=== PATIENT | female | born 1950 | race African-American/Black ===

== ENCOUNTER 2021-09-04 17:33 | Inpatient (IN) | payer MEDICARE, OTHER ==
[~2021-09-04] VITALS: Ht 160 cm; Wt 63.5 kg
--- NOTE | 2021-09-04 17:35 | NUR ---
CALLED PINKY FOR PSYCH EVAL.
[2021-09-04] MEDS ORDERED: OLAN2.5T3 PO ×2 (17:58)
[2021-09-04] MEDS ORDERED: IMIP25TA6 PO (17:58)
[2021-09-04] MEDS ORDERED: LOVA40TA2 PO (17:58)
[2021-09-04] MEDS ORDERED: CEPH500C2 PO (17:58)
[2021-09-04] MEDS ORDERED: LEVO50TA8 PO (17:58)
[2021-09-04] MEDS ORDERED: METO-356 PO (17:58)
[2021-09-04] MEDS ORDERED: GABA100C PO (17:58)
--- NOTE | 2021-09-04 18:06 | NUR ---
SANDWICH AND JUICE PROVIDED FOR PT.
--- NOTE | 2021-09-04 19:18 | NUR ---
PT NOTED TO BE CONTINUOUSLY WALKING AROUND ER DESPITE RE-ORIENTATION AND REDIRECTION. PLACED 1:1 SITTER, SECURITY BEDSIDE.
--- NOTE | 2021-09-04 19:26 | NUR ---
PINKY FROM CRISIS AT BEDSIDE TO EVAL PT.
[2021-09-04] MEDS ORDERED: OLANZAPINE 10 MG VIAL IM ONE ×2 (19:30→19:39)
--- NOTE | 2021-09-04 20:21 | NUR ---
GAVE REPORT TO SCOOTER IN U.
--- NOTE | 2021-09-04 20:50 | NUR ---
Pt. admitted to U ROOM 139B , under care of AND DR. ZEPEDA DX: PSYCHOSIS 5150 HOLD GD Belongs List completed
[2021-09-04] MEDS ORDERED: ACETAMINOPHEN 325 MG TABLET PO PRN (21:00)
[2021-09-04] MEDS ORDERED: BLOOD SUGAR DIAGNOSTIC 1 EACH STRIP VI ONE (21:00)
[2021-09-04] MEDS ORDERED: MAGNESIUM HYDROXIDE 30 ML LIQUID UDC PO PRN (21:00)
[2021-09-04] MEDS ORDERED: MAG HYDROX/AL HYDROX/SIMETH 30 ML LIQUID UDC PO PRN (21:00)
[2021-09-04] MEDS: CEphaleXIN 500 MG CAPSULE PO SCH (21:51)
[2021-09-04] MEDS: TEMAZEPAM 7.5 MG CAPSULE PO PRN (21:51)
--- NOTE | 2021-09-05 01:09 | NUR ---
ADMISSION NOTE: 71 YRS OLD FEMALE WHO LIVES ALONE WAS TRANSFERRED FROM [facility] TO [facility].PT GOT ZYPREXA 10 MG IM FOR BEHAVIOR ISSUES DUE TO UNCOOPERATIVE WITH DIRECTION .PT ARRIVED TO MHU VIA [facility]ERNEY AFTER MEDICAL CLEARED FROM ER AND CRISIS TEAM PUT HER ON 72 HR HOLD FOR GD DUE TO INCREASED CONFUSION,INSOMNIA AND ANXIETY.A/O X1,CONFUSED,ANXIOUS,POOR CONCENTRATION,EASILY IRRITABLE AND PARANOID.PT.HAS HX.OF HTN,HL,HYPOTHYROIDISM,FIBROMYALGIA,UTI AND PSYCHOTIC DISORDER.FIXATED ON HER MEDICATIONS THAT SHE BROUGHT WITH HER.HX.OF FAILED SA IN THE PAST BUT SHE DENIES PAIN/SI/HI/A&V H.@ THIS TIME.IN NO ACUTE DISTRESS NOTED AND NO AGGRESSIVE BEHAVIOR @ THIS MOMENT.WILL CONTINUE TO MONITOR.
[2021-09-05] MEDS: LEVOTHYROXINE SODIUM 50 MCG TABLET PO SCH (06:47)
[2021-09-05] MEDS: CEphaleXIN 500 MG CAPSULE PO SCH ×3 (06:47→20:32)
[2021-09-05 07:30] VITALS: BP 122/80
[2021-09-05 07:55] LABS: HEMATOCRIT 43.4 % (31.2-41.9); MEAN CORPUSCULAR VOLUME 89.5 fL (75.5-95.3); PLATELET COUNT (AUTO) 204 K/uL (179-408)
[2021-09-05 08:16] LABS: THYROID STIMULATING HORMONE 1.192 mIU/mL (0.358-3.740)
--- NOTE | 2021-09-05 08:24 | NUR ---
GPS: Nursing Notes: Per Pharmacy Vaccinations: Vaccinations: Flu and pneumonia vaccinations not provided by pharmacy at this time due to patient on antibiotic for UTI (Keflex), waiting for the antibiotic treatment to be completed or to be given before discharge, to be endorse to incoming shift, continue with treatment plan.
[2021-09-05] MEDS: METOPROLOL SUCCINATE XL 25 MG TAB.SR.24H PO SCH (08:29)
[2021-09-05] MEDS: LORAZEPAM 1 MG TABLET PO PRN ×4 (08:29→20:41)
[2021-09-05] MEDS: GABAPENTIN 100 MG CAPSULE PO SCH ×3 (08:29→16:35)
[2021-09-05 09:17] LABS: BILIRUBIN,TOTAL 0.7 mg/dL (0.2-1.0); CREATININE 1.2 mg/dL (0.6-1.3); MAGNESIUM 2.2 mg/dL (1.8-2.4); PHOSPHOROUS 3.5 mg/dL (2.5-4.9); POTASSIUM 4.2 mmol/L (3.5-5.1); TOTAL PROTEIN, SERUM 6.8 g/dL (6.4-8.2)
--- NOTE | 2021-09-05 11:20 | NUR ---
Firearms Report: Administration Manager completed and submitted a DOJ firearms report for 5150 grave disability certifications. A copy of report has been placed in patient chart.
--- NOTE | 2021-09-05 14:19 | NUR ---
BINH Initial Discharge Plan: Patient currently resides at home [address] [place] [address] ([phone]) by herself. Pt has daughter, Ricarda ([phone]) and son Nasir ([phone]) who she does not want involved in her treatment plan. Patient may require a SNF placement upon discharge. Pt is agreeable with SNF placement. BINH will continue to work with patient, family, and MD to ensure a safe and proper discharge plan.
--- NOTE | 2021-09-05 14:21 | NUR ---
SW Daughter Contact: Patient's daughter, Ricarda ([phone]) contacted this child care worker and provided collateral information. Ricarda stated that the patient has been living on her own independently. Ricarda stated that the patient recently contacted all her family members requesting for them to move in with her because she can not longer take care of herself. Ricarda stated that she, the patient's son and patient's brother are all concerned. Ricarda stated that they have not been as involved with each other until recently.
[2021-09-05 15:00] VITALS: BP 123/57
[2021-09-05 20:10] VITALS: BP 108/51
[2021-09-05] MEDS: ATORVASTATIN 40 MG TABLET PO SCH (20:32)
[2021-09-05] MEDS ORDERED: MIRTAZAPINE 15 MG TABLET PO SCH (21:30)
[2021-09-05] MEDS: RIVASTIGMINE TARTRATE 1.5 MG CAPSULE PO SCH (21:50)
[2021-09-05] MEDS: risperiDONE 0.5 MG TABLET PO SCH (21:50)
--- NOTE | 2021-09-06 05:01 | NUR ---
Received the patient at the start of the shift asking for the phone. This senior writer assisted the patient multiple times but the patient was unclear of the number. The patient is needy, impulsive and visibly angered by the other patients. Making faces behind their backs, as well as, flipping them off. The patient appears to be confused and easily irritated. This senior writer attempted to engage the patient in meaningful conversation but due to tangential and delusion responses it was difficult.The patient denies SI, but clearly is unable to plan for self care. The daughter called but the patient refused to talk to her and was adamant that no information be provided. This was also endorsed to the senior writer from the dayshift. So far, the patient has been medication compliant and able to let her needs be known. Safety stratiges are in place.
[2021-09-06] MEDS: CEphaleXIN 500 MG CAPSULE PO SCH ×3 (05:59→21:24)
[2021-09-06] MEDS: LEVOTHYROXINE SODIUM 50 MCG TABLET PO SCH (06:00)
[2021-09-06 07:30] VITALS: BP 131/60
[2021-09-06] MEDS: GABAPENTIN 100 MG CAPSULE PO SCH ×3 (08:01→17:09)
[2021-09-06] MEDS: RIVASTIGMINE TARTRATE 1.5 MG CAPSULE PO SCH ×2 (08:01→20:12)
[2021-09-06] MEDS: risperiDONE 0.5 MG TABLET PO SCH ×2 (08:01→20:21)
[2021-09-06] MEDS: METOPROLOL SUCCINATE XL 25 MG TAB.SR.24H PO SCH (08:07)
--- NOTE | 2021-09-06 09:27 | NUR ---
GPS: RECEIVED PT ALERT AND VERBALLY RESPONSIVE, WITH CONFUSION. PT LIKES TO SEEK ATTENTION. MED COMPLIANT AND COOPERATIVE.
--- NOTE | 2021-09-06 12:39 | NUR ---
GPS: PT WITH INCREASED CONFUSION. PT FORGETFUL, ASKING FOR MORNING MEDS AND ACTING SUSPICIOUS TO STAFF. PT ON KEFLEX FOR UTI. "ASKING TO BE RELEASED NOW COZ ITS ONLY UTI." " I HEAR A LOT OF VOICES". PT INCREASES ANXIOUSNESS. PT OFFERED ATIVAN TO CALM DOWN, PT TOLERATED WELL. PT ASKED FOR WALKER BUT AMBULATORY AND PT ACTED, LAYING DOWN ON THE FLOOR PROVING SHE CANT WALK AND AFTER A MINUTE STARTED WALKING AGAIN. YELLING NOTED. .
[2021-09-06] MEDS: LORAZEPAM 1 MG TABLET PO PRN ×2 (12:52→17:11)
--- NOTE | 2021-09-06 15:56 | NUR ---
GPS: URINE SPECIMEN CLEAN CATCH GATHERED FROM PT. READY FOR UA CULTURE.
[2021-09-06 16:00] VITALS: BP 142/73
[2021-09-06 16:45] LABS: *BILIRUBIN,URIN NEGATIVE (NEGATIVE); *BLOOD, URINE NEGATIVE (NEGATIVE); *CLARITY,URINE CLEAR (CLEAR); *COLOR,URINE YELLOW (YELLOW); *KETONES,URINE NEGATIVE (NEGATIVE); *UROBILINOGEN,URINE 0.2 E.U./dl (NORMAL); LEUKOCYTE ESTERASE ,URINE NEGATIVE (NEGATIVE); NITRITE, URINE NEGATIVE (NEGATIVE); UGLUCOSE NEGATIVE (NEGATIVE)
--- NOTE | 2021-09-06 17:17 | NUR ---
GPS: PT COMPLAINING THAT SHE'S BEEN HEARING LOUD NOISES OF TRUCKS, CARS, AIRPLANES AND BIRDS. SO LOUD THAT SHE PLUGS BOTH EARS WITH PAPER. PT ALSO COMPLAINED OF LOUD SNORE OF HER ROOMMATE. PT CONFUSED AND FORGETFUL. PT BECOMES ANXIOUS AND NEEDY. PT GIVEN ATIVAN PO AND TOLERATED WELL.
[2021-09-06 20:00] VITALS: BP 136/66
[2021-09-06] MEDS: ATORVASTATIN 40 MG TABLET PO SCH (20:12)
--- NOTE | 2021-09-06 21:57 | NUR ---
received patient in the day room. she is noted A/O x 2. she is noted hyperverbal, demanding, argumentative, she is noted with grandiose delusional. she requires multiple redirections and reassurance. she is noted with impaired insight and judgment as to the reason for her admission to MHU. she was given PO fluids and snacks. V/S stable. she is reassured for her safety. safety and fall precaution are in place. will continue to monitor.
[2021-09-06] MEDS: TEMAZEPAM 7.5 MG CAPSULE PO PRN (22:30)
[2021-09-07] MEDS: LORAZEPAM 1 MG TABLET PO PRN ×3 (03:29→20:03)
[2021-09-07] MEDS: CEphaleXIN 500 MG CAPSULE PO SCH ×3 (05:50→20:39)
[2021-09-07] MEDS: LEVOTHYROXINE SODIUM 50 MCG TABLET PO SCH (06:09)
--- NOTE | 2021-09-07 06:46 | NUR ---
Patient slept for approx 3. hrs through the night. She was noted restless, anxious and hyperverbal. Ativan 1mg PO PRN was given at 0330. she is noted calm and sitting in a chair by the nursing station. will continue to monitor.
[2021-09-07 07:30] VITALS: BP 131/78
[2021-09-07] MEDS: FLUVOXAMINE MALEATE 25 MG TABLET PO SCH ×3 (09:00→16:28)
[2021-09-07] MEDS: METOPROLOL SUCCINATE XL 25 MG TAB.SR.24H PO SCH (09:00)
[2021-09-07] MEDS: RIVASTIGMINE TARTRATE 1.5 MG CAPSULE PO SCH ×2 (09:00→20:39)
[2021-09-07] MEDS: risperiDONE 0.5 MG TABLET PO SCH ×2 (09:00→20:40)
[2021-09-07] MEDS: GABAPENTIN 100 MG CAPSULE PO SCH ×3 (09:00→16:28)
--- NOTE | 2021-09-07 15:36 | NUR ---
GPS: PT ALERT AND ORIENTED X2. PT HYPER VERBAL, CONFUSED WITH EPISODE OF ANXIETY. PT WITH CRYING SPELLS AND PT STATED HEARING SOUNDS OF TRAINS, TRUCKS, AIRPLANES AND BIRDS. AT TIMES, SEEN SITTING ON THE FLOOR, SCRIBBLING AND VERY NEEDY. FORGETFUL. MED COMPLIANT, REFUSED SHOWER.
[2021-09-07 16:28] VITALS: BP 117/54
[2021-09-07 20:20] VITALS: BP 110/77
[2021-09-07] MEDS: ATORVASTATIN 40 MG TABLET PO SCH (20:40)
[2021-09-08] MEDS: TEMAZEPAM 7.5 MG CAPSULE PO PRN (01:12)
[2021-09-08] MEDS: CEphaleXIN 500 MG CAPSULE PO SCH ×3 (06:02→20:29)
[2021-09-08] MEDS: LEVOTHYROXINE SODIUM 50 MCG TABLET PO SCH (06:02)
[2021-09-08 07:30] VITALS: BP 127/64
[2021-09-08] MEDS: RIVASTIGMINE TARTRATE 1.5 MG CAPSULE PO SCH ×2 (08:20→20:29)
[2021-09-08] MEDS: risperiDONE 0.5 MG TABLET PO SCH ×2 (08:20→20:50)
[2021-09-08] MEDS: GABAPENTIN 100 MG CAPSULE PO SCH ×3 (08:20→16:33)
[2021-09-08] MEDS: FLUVOXAMINE MALEATE 25 MG TABLET PO SCH ×3 (08:20→16:33)
[2021-09-08] MEDS: METOPROLOL SUCCINATE XL 25 MG TAB.SR.24H PO SCH (08:21)
--- NOTE | 2021-09-08 09:41 | NUR ---
PT RECEIVED AMBULATING UNIT HALLWAY. ANXIOUS AND REPETITIVE. FIXATED ON HOLD. PT EXHIBITS BIZARRE BEHAVIOR, SHE WENT INTO THE SOCIAL WORKERS OFFICE WHILE POWER TRANSFORMER REPAIRER WAS TALKING TO INVESTIGATOR VICE, AND LAID DOWN ON THE FLOOR, STATING "YOU GUYS RUIN BLACK LIVES." REQUIRES FREQUENT AND EXCESIVE REDIRECTION. COMPLIANT WITH MEDICATIONS AND CARE.
--- NOTE | 2021-09-08 11:12 | NUR ---
SW Daughter Contact: BINH spoke with patient's daughter, Ricarda ([phone]) and discussed treatment and discharge plan. SW explained patient will require a SNF upon discharge. Ricarda is agreeable and understanding. SW discussed steps for DPOA or Conservatorship for the future.
[2021-09-08] MEDS: LORAZEPAM 1 MG TABLET PO PRN ×2 (12:19→20:29)
--- NOTE | 2021-09-08 15:33 | NUR ---
BINH Family Contact: SW spoke with patient's brother Nasir Barraza ([phone]) and discussed treatment and discharge plan to a limited extent.
[2021-09-08 16:45] VITALS: BP 118/58
[2021-09-08 20:00] VITALS: BP 129/55
[2021-09-08] MEDS: ATORVASTATIN 40 MG TABLET PO SCH (20:29)
[2021-09-08] MEDS ORDERED: risperiDONE 0.25 MG TABLET PO SCH (21:00)
--- NOTE | 2021-09-09 05:47 | NUR ---
Received patient at the start of the shift, asking for her medications. This patient is forgetful and needy, with multiple, repetitive requests . Oim Architect redirected and reoriented the patient . The patient wanted to change roommates because they were not getting along. Total sleep hours were 8.15. Continuing to monitor patient for safety and continue with the plan of care.
[2021-09-09] MEDS: CEphaleXIN 500 MG CAPSULE PO SCH ×2 (06:13→12:35)
[2021-09-09] MEDS: LEVOTHYROXINE SODIUM 50 MCG TABLET PO SCH (06:14)
[2021-09-09 07:45] VITALS: BP 112/54
[2021-09-09] MEDS: GABAPENTIN 100 MG CAPSULE PO SCH ×3 (08:14→16:16)
[2021-09-09] MEDS: risperiDONE 0.5 MG TABLET PO SCH ×2 (08:14→20:25)
[2021-09-09] MEDS: RIVASTIGMINE TARTRATE 1.5 MG CAPSULE PO SCH ×2 (08:14→20:24)
[2021-09-09] MEDS: METOPROLOL SUCCINATE XL 25 MG TAB.SR.24H PO SCH (08:14)
[2021-09-09] MEDS: FLUVOXAMINE MALEATE 25 MG TABLET PO SCH ×3 (08:14→16:16)
--- NOTE | 2021-09-09 10:12 | NUR ---
PT APPEARS ANXIOUS AND PARANOID AT THIS TIME. BELIEVES STAFF IS WORKING AGAINST HER AND THAT "YOU ALL LIE, YOU GUYS ARE ALL LIARS. I HAVE A BACHELORS DEGREE, AND I KNOW WHEN YOU GUYS ALL LIE." REQUIRES FREQUENT REDIRECTION. DOES NOTE BELIEVE SHE NEEDS TO BE HERE BECAUSE "I'M NOT AN ALCOHOLIC." EDUCATION REGARDING HOLD PROVIDED BUT PT REFUSES TO ACCEPT EDUCATION GIVEN.
[2021-09-09 16:13] VITALS: BP 97/58
[2021-09-09] MEDS: LORAZEPAM 1 MG TABLET PO PRN (20:24)
[2021-09-09] MEDS: ATORVASTATIN 40 MG TABLET PO SCH (20:25)
[2021-09-09] MEDS: TEMAZEPAM 7.5 MG CAPSULE PO PRN (21:48)
--- NOTE | 2021-09-10 01:36 | NUR ---
Received patient at the start of shift ,in her room, acting anxious and frustrated. The patient wanted to speak to her daughter. This typewriter ribbon winder assisted patient with the number and the phone. After talking with her daughter, the patient wanted to speak to her nurse. This typewriter ribbon winder told the patient to "hang on for a sec", because of being " busy doing something. I will be right there ". Not a minute later, the patient decided to lay down on the floor in the sharp, in order to get immediate attention from the staff. Staff helped her up and patient proceeded to make complaints about the social workers " Not listening and ignoring " her and " Giving false information to my daughter." The patient told the nurse about some frustrations she has had and that she felt SI, but did not have a method. This typewriter ribbon winder spent a long period of time with the patient as a active listener. Reassurance and comfort provided. The typewriter ribbon winder and patient were able to engage in a meaningful conversation, at which time ,a contract for safety was made. The patient was completely alert and oriented, despite the bizarre display earlier. The patient was encouraged to verbalize her feelings and identify the triggers for her SI. The patient verbalized understanding and agreed to the plan of care for the night. Safety stratiges are ongoing.
[2021-09-10] MEDS: LEVOTHYROXINE SODIUM 50 MCG TABLET PO SCH (06:05)
[2021-09-10 07:30] VITALS: BP 127/68
[2021-09-10] MEDS: FLUVOXAMINE MALEATE 25 MG TABLET PO SCH ×3 (08:00→16:53)
[2021-09-10] MEDS: risperiDONE 0.5 MG TABLET PO SCH (08:00)
[2021-09-10] MEDS: GABAPENTIN 100 MG CAPSULE PO SCH ×3 (08:00→16:53)
[2021-09-10] MEDS: RIVASTIGMINE TARTRATE 1.5 MG CAPSULE PO SCH ×2 (08:00→20:26)
[2021-09-10] MEDS: METOPROLOL SUCCINATE XL 25 MG TAB.SR.24H PO SCH (08:00)
[2021-09-10] MEDS ORDERED: INFLUENZA VACCINE 2021-2022 0.5 ML DISP.SYRIN IM ONE (09:00)
[2021-09-10] MEDS ORDERED: PNEUMOCOCCAL 23-VAL P-SAC VAC 0.5 ML VIAL IM ONE (09:00)
[2021-09-10] MEDS ORDERED: risperiDONE 1 MG TABLET PO SCH (09:00)
--- NOTE | 2021-09-10 09:47 | NUR ---
PT RECEIVED AMBULATING UNIT HALLWAY. PT CAN BE NEEDY AND IRRITABLE AT TIMES. COMPLIANT WITH MEDICATIONS AND CARE. ADMINISTERED FLU AND PNA VACCINE PER PT REQUEST. NO SIDE EFFECTS NOTED.
[2021-09-10 15:10] VITALS: BP 109/55
[2021-09-10 20:00] VITALS: BP 116/50
[2021-09-10] MEDS: risperiDONE 1 MG TABLET PO SCH (20:26)
[2021-09-10] MEDS: ATORVASTATIN 40 MG TABLET PO SCH (20:26)
[2021-09-10] MEDS: TEMAZEPAM 7.5 MG CAPSULE PO PRN (22:05)
[2021-09-11] MEDS: LEVOTHYROXINE SODIUM 50 MCG TABLET PO SCH (06:40)
[2021-09-11 07:33] VITALS: BP 109/54
[2021-09-11] MEDS: METOPROLOL SUCCINATE XL 25 MG TAB.SR.24H PO SCH (08:29)
[2021-09-11] MEDS: GABAPENTIN 100 MG CAPSULE PO SCH ×3 (08:29→16:07)
[2021-09-11] MEDS: RIVASTIGMINE TARTRATE 1.5 MG CAPSULE PO SCH ×2 (08:29→20:01)
[2021-09-11] MEDS: risperiDONE 1 MG TABLET PO SCH ×2 (08:29→20:01)
[2021-09-11] MEDS: FLUVOXAMINE MALEATE 25 MG TABLET PO SCH ×3 (08:29→16:07)
--- NOTE | 2021-09-11 08:41 | NUR ---
BINH SNF Referral: SE faxed patient's referral packet to [facility] ( ) attention to Margo production coordinator. Addendum: 09/12/21 at 0946 by ALMAS YORK Patient is accepted for placement.
--- NOTE | 2021-09-11 10:22 | NUR ---
BINH PC Hearing: Patient had 5250 probable cause hearing today and it was upheld for grave disability.
[2021-09-11 15:55] VITALS: BP 119/61
--- NOTE | 2021-09-11 18:27 | NUR ---
Patient resting in bed. Patient cooperative and calm on approach. No signs of acute distress. Patient denies pain/ discomfort. Patient denies SOB/ . Compliant with medications and care. Needy and attention seeking at times. Redirectable. No aggressive or disruptive behavior noted. Needs anticipated and met. Will endorse to incoming shift for continuity of care.
[2021-09-11] MEDS: ATORVASTATIN 40 MG TABLET PO SCH (20:01)
[2021-09-11 20:10] VITALS: BP 148/81
[2021-09-11] MEDS: TEMAZEPAM 7.5 MG CAPSULE PO PRN (21:51)
[2021-09-12] MEDS: LEVOTHYROXINE SODIUM 50 MCG TABLET PO SCH (06:18)
[2021-09-12 07:30] VITALS: BP 116/46
[2021-09-12 08:00] VITALS: BP 121/70
[2021-09-12] MEDS: GABAPENTIN 100 MG CAPSULE PO SCH ×3 (08:07→17:22)
[2021-09-12] MEDS: RIVASTIGMINE TARTRATE 1.5 MG CAPSULE PO SCH ×2 (08:07→20:35)
[2021-09-12] MEDS: risperiDONE 1 MG TABLET PO SCH ×2 (08:08→20:35)
[2021-09-12] MEDS: FLUVOXAMINE MALEATE 25 MG TABLET PO SCH ×3 (08:08→17:22)
[2021-09-12] MEDS: METOPROLOL SUCCINATE XL 25 MG TAB.SR.24H PO SCH (08:48)
--- NOTE | 2021-09-12 09:46 | NUR ---
BINH Daughter Contact: BINH left a message for patient's daughter, Ricarda ([phone]) and waiting for a call back. Addendum: 09/12/21 at 1006 by ALMAS YORK BINH received a call back from Ricarda and discussed that the patient is requesting for her to picker box operator her car [place] from the hospital and picker box operator her car her car from [facility]. Ricarda stated that she cannot come and neither can any other family members. Ricarda stated she contacted [facility] and they informed her that the car will not towed and possibly no charges will be on it as this happens often.
[2021-09-12 15:07] VITALS: BP 122/65
--- NOTE | 2021-09-12 18:11 | NUR ---
Patient is alert and oriented. Patient is anxious, restless, intrusive, and needy. Patient requires redirection for being intrusive with staff. Patient is compliant with medications. Patient denies suicidal and homicidal ideation, denies hallucinations, but states that she stuffs pieces of tissue in her ears because she hears noises of traffic and "sports broadcasters" in the hallway. Patient is able to ambulate independently and perform self care and ADL's independently. Patient is encouraged to participate in unit groups and therapeutic milieu. Educated about communicating needs to staff appropriately and educated about impulse control.
[2021-09-12 19:41] VITALS: BP 125/43
[2021-09-12] MEDS: ATORVASTATIN 40 MG TABLET PO SCH (20:35)
[2021-09-12] MEDS: TEMAZEPAM 7.5 MG CAPSULE PO PRN (22:26)
[2021-09-13] MEDS: LEVOTHYROXINE SODIUM 50 MCG TABLET PO SCH (06:21)
[2021-09-13 07:30] VITALS: BP 111/52
[2021-09-13] MEDS: GABAPENTIN 100 MG CAPSULE PO SCH ×3 (08:52→18:25)
[2021-09-13] MEDS: METOPROLOL SUCCINATE XL 25 MG TAB.SR.24H PO SCH (08:52)
[2021-09-13] MEDS: RIVASTIGMINE TARTRATE 1.5 MG CAPSULE PO SCH ×2 (08:52→20:24)
[2021-09-13] MEDS: risperiDONE 1 MG TABLET PO SCH ×2 (08:52→20:24)
[2021-09-13] MEDS: FLUVOXAMINE MALEATE 25 MG TABLET PO SCH ×3 (08:52→18:25)
[2021-09-13] MEDS: LOPERAMIDE HCL 2 MG CAPSULE PO PRN (13:19)
[2021-09-13 16:00] VITALS: BP 109/77
[2021-09-13 19:53] VITALS: BP 138/59
[2021-09-13] MEDS: ATORVASTATIN 40 MG TABLET PO SCH (20:24)
[2021-09-13] MEDS: TEMAZEPAM 7.5 MG CAPSULE PO PRN (22:04)
[2021-09-14] MEDS: LORAZEPAM 1 MG TABLET PO PRN ×2 (03:29→20:38)
--- NOTE | 2021-09-14 03:30 | NUR ---
PRN Ativan, given for anxiety.
[2021-09-14] MEDS: LEVOTHYROXINE SODIUM 50 MCG TABLET PO SCH (06:48)
--- NOTE | 2021-09-14 06:58 | NUR ---
Patient slept for approx 6.45 hrs through the night. She continue easily irritable but she is redirectable. seh continue putting paper towel in her hears. She stated, "I don't hear noises; I put this on my ears so i can't hear the noises outside, like sirens and cars". She was noted anxious at approx 0330, Ativan 1mg PO PRN was given. Noted effective. will continue to monitor.
[2021-09-14 07:30] VITALS: BP 115/59
[2021-09-14] MEDS: RIVASTIGMINE TARTRATE 1.5 MG CAPSULE PO SCH (08:30)
[2021-09-14] MEDS: FLUVOXAMINE MALEATE 25 MG TABLET PO SCH ×3 (08:30→17:10)
[2021-09-14] MEDS: METOPROLOL SUCCINATE XL 25 MG TAB.SR.24H PO SCH (08:30)
[2021-09-14] MEDS: risperiDONE 1 MG TABLET PO SCH (08:31)
[2021-09-14] MEDS: GABAPENTIN 100 MG CAPSULE PO SCH ×3 (08:31→17:10)
--- NOTE | 2021-09-14 09:53 | NUR ---
Gps/Emergency Operator- Walking around in her room, with no pajama bottoms on. Discolored from coming out of her room without any buttoms, per patient she has the right not to wear any buttoms when in her room. Encouraged participation in her group therapy.
[2021-09-14] MEDS: LOPERAMIDE HCL 2 MG CAPSULE PO PRN (14:33)
[2021-09-14 16:00] VITALS: BP 106/41
[2021-09-14] MEDS: FLUVOXAMINE MALEATE 50 MG TABLET PO SCH (20:38)
[2021-09-14] MEDS: ATORVASTATIN 40 MG TABLET PO SCH (20:39)
[2021-09-14] MEDS: risperiDONE 0.5 MG TABLET PO SCH (20:40)
[2021-09-14 21:35] VITALS: BP 110/50
[2021-09-15] MEDS: TEMAZEPAM 7.5 MG CAPSULE PO PRN (02:29)
[2021-09-15] MEDS: LEVOTHYROXINE SODIUM 50 MCG TABLET PO SCH (05:33)
[2021-09-15] MEDS: LORAZEPAM 1 MG TABLET PO PRN ×2 (05:33→20:17)
--- NOTE | 2021-09-15 05:59 | NUR ---
Received patient in her room. No pants on. The patient was easily redirectable and compliant. Patient asked many times for medication to " sleep " and " to relax " . Patient is forgetful and has some delusions. Also ruminates on topics that are not true. Patient denied SI and made a contract for safety with this ticket writer. Slept well, no issues during the night.
[2021-09-15 07:30] VITALS: BP 115/57
[2021-09-15] MEDS: risperiDONE 0.5 MG TABLET PO SCH ×2 (08:52→20:16)
[2021-09-15] MEDS: CLONAZEPAM 0.5 MG TABLET PO SCH ×3 (08:53→16:18)
[2021-09-15] MEDS: GABAPENTIN 100 MG CAPSULE PO SCH ×3 (08:53→16:18)
[2021-09-15] MEDS: FLUVOXAMINE MALEATE 25 MG TABLET PO SCH ×2 (08:53→16:18)
[2021-09-15] MEDS: METOPROLOL SUCCINATE XL 25 MG TAB.SR.24H PO SCH (08:55)
--- NOTE | 2021-09-15 15:16 | NUR ---
Gps/Fortune Teller- Less needy, used phone couple of time, attended her group therapy , claimed she enjoy the group and loves music. Compliant with medications , denies any discomfort, pleasant affect. Wears her pajama buttom all day .
[2021-09-15 16:00] VITALS: BP 126/64
[2021-09-15 19:52] VITALS: BP 118/58
[2021-09-15] MEDS: FLUVOXAMINE MALEATE 50 MG TABLET PO SCH (20:16)
[2021-09-15] MEDS: ATORVASTATIN 40 MG TABLET PO SCH (20:17)
[2021-09-16] MEDS: LEVOTHYROXINE SODIUM 50 MCG TABLET PO SCH (05:53)
--- NOTE | 2021-09-16 06:46 | NUR ---
Patient was calm and rational during the shift. No inappropriate behavior or overt delusions noticed. The patient denies SI and continues with the contract for safety with this machine sign writer. Patient has been anxious and asking for a medication to" calm her down." The anxiety is stemming from her discharge Saturday as she verbalized uncertainty regarding the facility. Reassurance and active listening provided.
[2021-09-16 07:30] VITALS: BP 126/62
[2021-09-16] MEDS: METOPROLOL SUCCINATE XL 25 MG TAB.SR.24H PO SCH (08:20)
[2021-09-16] MEDS: risperiDONE 0.5 MG TABLET PO SCH ×2 (08:21→20:21)
[2021-09-16] MEDS: FLUVOXAMINE MALEATE 25 MG TABLET PO SCH ×2 (08:21→17:10)
[2021-09-16] MEDS: CLONAZEPAM 0.5 MG TABLET PO SCH ×3 (08:21→17:11)
[2021-09-16] MEDS: GABAPENTIN 100 MG CAPSULE PO SCH ×3 (08:21→17:10)
--- NOTE | 2021-09-16 11:43 | NUR ---
Gps/Civil Preparedness Coordinator- Refused to stay in the activity room , claimed too loud there and cant stand it, claimed tired and needed to rest in bed .Compliant with her am routine meds.
[2021-09-16] MEDS: LOPERAMIDE HCL 2 MG CAPSULE PO PRN ×2 (13:51→20:57)
[2021-09-16 16:00] VITALS: BP 116/46
--- NOTE | 2021-09-16 17:25 | NUR ---
Gps/Fabrication And Assembly Supervisor- Forgetful, kept coming to the Nurses station asking who is her Nurse, content writer introduced self many times , was able to talk to patient about her discharge plan saturday . Noted worried about her roommate , claimed she does not know how to do CPR , reassured patient staff takes care of everyone .Encouraged to eat in the dinning room, during meals
--- NOTE | 2021-09-16 17:48 | NUR ---
Gps/Dynamics Ax Technical Architect- Noted patient having some paranoia, claimed she heard the staff talking about her, comparing her to another patient , informed patient and reassured patient nobody is talking about her . Patient putting tissue paper in her ears claimed the noise from the ambulance and airplane bothers her.
[2021-09-16 20:00] VITALS: BP 122/68
[2021-09-16] MEDS: FLUVOXAMINE MALEATE 50 MG TABLET PO SCH (20:21)
[2021-09-16] MEDS: ATORVASTATIN 40 MG TABLET PO SCH (20:21)
[2021-09-16] MEDS: TEMAZEPAM 7.5 MG CAPSULE PO PRN (22:13)
[2021-09-17] MEDS: LEVOTHYROXINE SODIUM 50 MCG TABLET PO SCH (06:04)
[2021-09-17 07:57] VITALS: BP 131/63
[2021-09-17] MEDS: CLONAZEPAM 0.5 MG TABLET PO SCH ×3 (08:00→16:18)
[2021-09-17] MEDS: FLUVOXAMINE MALEATE 25 MG TABLET PO SCH ×2 (08:00→16:18)
[2021-09-17] MEDS: GABAPENTIN 100 MG CAPSULE PO SCH ×3 (08:00→16:18)
[2021-09-17] MEDS: risperiDONE 0.5 MG TABLET PO SCH ×2 (08:00→20:36)
[2021-09-17] MEDS: METOPROLOL SUCCINATE XL 25 MG TAB.SR.24H PO SCH (08:08)
[2021-09-17 15:57] VITALS: BP 100/64
[2021-09-17 20:21] VITALS: BP 126/61
[2021-09-17] MEDS: ATORVASTATIN 40 MG TABLET PO SCH (20:36)
[2021-09-17] MEDS: FLUVOXAMINE MALEATE 50 MG TABLET PO SCH (20:36)
[2021-09-18] MEDS: LORAZEPAM 1 MG TABLET PO PRN (03:43)
[2021-09-18] MEDS: LEVOTHYROXINE SODIUM 50 MCG TABLET PO SCH (06:24)
[2021-09-18 07:53] VITALS: BP 135/66
--- NOTE | 2021-09-18 08:04 | NUR ---
Discharge Note: Patient will be discharged to a [facility] located at [address] [place] [address]; ([phone]) via ambulance transportation at 1PM. Emergency Department Nurse spoke with [place], Computer Consultant at [facility] ([phone]) stated patient will be accepted at facility today. Patient is alert and oriented x2 and is not able to plan for self-care at this time but is willing to accept care provided for her at the facility. Patient denies any suicidal or homicidal ideation. Patient is aware and agreeable with discharge plans. Patients daughter Ricarda ([phone]) is aware and agreeable with discharge. Patient will continue to follow-up with her (Psychiatrist) Dr. Navarro located at [address], [place] [address]; ([phone]) and (Drying Can Worker) Dr. Farley [address], [place] [address]; ([phone]). Patient presents with euthymic mood and congruent affect.
[2021-09-18] MEDS: risperiDONE 0.5 MG TABLET PO SCH (08:50)
[2021-09-18] MEDS: GABAPENTIN 100 MG CAPSULE PO SCH (08:50)
[2021-09-18 08:51] VITALS: BP 135/66
[2021-09-18] MEDS: METOPROLOL SUCCINATE XL 25 MG TAB.SR.24H PO SCH (08:51)
[2021-09-18] MEDS: CLONAZEPAM 0.5 MG TABLET PO SCH (08:51)
[2021-09-18] MEDS: FLUVOXAMINE MALEATE 25 MG TABLET PO SCH (08:51)
[2021-09-18] MEDS: LOPERAMIDE HCL 2 MG CAPSULE PO PRN (11:20)
--- NOTE | 2021-09-18 13:42 | NUR ---
DISCHARGE NOTE: Patient discharged to a [facility], located at [address] [place] [address]; ([phone]). Patient was picked up by ambulance transportation. Patient denies any suicidal or homicidal ideation. Patients daughter Ricarda ([phone]) is aware and agreeable with discharge. Patient's belongings, valuables, and home medications inventoried with patient present and all was returned upon discharge. Patient's car keys will be picked up by daughter, Ricarda, with permission from the patient. Patient was provided with education about discharge medications, instructions, and continued care post-discharge. Patient is able to verbalize understanding. Patient's skin is intact. Patient is alert and oriented to reality. Patient discharged with no adverse event.
[2021-09-29] MEDS ORDERED: FLUVOXAMINE MALEATE 50 MG TABLET PO SCH (21:00)
[2021-09-30] MEDS ORDERED: FLUVOXAMINE MALEATE 25 MG TABLET PO SCH (09:00)
[2021-09-30] MEDS ORDERED: HALOPERIDOL 1 MG TABLET PO SCH (09:00)
[2021-09-30] MEDS ORDERED: CLONAZEPAM 0.5 MG TABLET PO SCH ×2 (09:00)
== END 2021-09-18 13:30 | DRG 885 ==
LOC: ER 17:36 → GPS 20:34
PROVIDERS: ADMIT Psychiatry & Neurology Psychiatry; ATTEND Internal Medicine
DX: F29 Unspecified psychosis not due to a substance or known physiological condition (principal); R45.851 Suicidal ideations; H93.233 Hyperacusis, bilateral; K58.9 Irritable bowel syndrome, unspecified; E03.9 Hypothyroidism, unspecified; Z79.890 Hormone replacement therapy; E78.5 Hyperlipidemia, unspecified; F32.A Depression, unspecified; I10 Essential (primary) hypertension; R93.89 Abnormal findings on diagnostic imaging of other specified body structures; F41.9 Anxiety disorder, unspecified; Z20.822 Contact with and (suspected) exposure to COVID-19; M79.7 Fibromyalgia
CPT/HCPCS: 36415; 83735; 84100; 84443; 85025; 87086; 90686; 90732; 97161; A4663; J2358

== ENCOUNTER 2021-09-28 20:19 | Inpatient (IN) | payer MEDICARE, OTHER ==
[~2021-09-28] VITALS: Ht 165.1 cm; Wt 65.3 kg
[~2021-09-28 20:19] MED LIST: CEPH500C2 PO; GABA100C PO; IMIP25TA6 PO; LEVO50TA8 PO; LOVA40TA2 PO; METO-356 PO
--- NOTE | 2021-09-28 20:45 | NUR ---
PT [facility] FROM [facility]. NO SI, NO VISUAL OR AUDITORY HALLUCINATIONS AT THIS TIME. A/O X2, NO SOB OR LABORED BREATHING, CLEAR SPEECH, COMPLETE SENTENCES. DENIES CP/PRESSURE. NO N/V/D.
--- NOTE | 2021-09-28 20:50 | NUR ---
DR. CEBALLOS AT BEDSIDE, MSE IN PROGRESS.
[2021-09-28] MEDS ORDERED: OLANZAPINE 5 MG TABLET PO ONE (21:15)
[2021-09-28] MEDS ORDERED: LORAZEPAM 0.5 MG TABLET PO ONE (21:15)
--- NOTE | 2021-09-28 21:15 | NUR ---
LAB AT BEDSIDE.
[2021-09-28] MEDS ORDERED: LORAZEPAM 1 MG TABLET ONE (21:31)
[2021-09-28] MEDS ORDERED: OLANZAPINE 5 MG TABLET ONE (21:32)
[2021-09-28 21:34] LABS: HEMATOCRIT 37.2 % (31.2-41.9); MEAN CORPUSCULAR VOLUME 89.2 fL (75.5-95.3); PLATELET COUNT (AUTO) 244 K/uL (179-408); POTASSIUM 3.3 mmol/L (3.5-5.1)
[2021-09-28 21:40] LABS: BILIRUBIN,TOTAL 0.6 mg/dL (0.2-1.0); TOTAL PROTEIN, SERUM 7.3 g/dL (6.4-8.2)
--- NOTE | 2021-09-28 22:07 | NUR ---
call placed to Art, crisis team phone number [phone]. informed him of a consult on this patient. He states "he will be on his way shortly to see the pt." eval for possible hold as she was aggressive to staff and residents at her facility.
[2021-09-28 22:08] LABS: *BILIRUBIN,URIN NEGATIVE (NEGATIVE); *CLARITY,URINE SLIGHTLY CLOUDY (CLEAR); *COLOR,URINE YELLOW (YELLOW); *KETONES,URINE 1+ (NEGATIVE); LEUKOCYTE ESTERASE ,URINE 2+ (NEGATIVE); NITRITE, URINE NEGATIVE (NEGATIVE); UGLUCOSE NEGATIVE (NEGATIVE)
--- NOTE | 2021-09-28 22:10 | NUR ---
PT CONTINUES TO BE IN NEED OF REDIRECTING, NOTED TO BE CONTINUIUSLY WALKING AROUND THE ER DESPITE RE-ORIENTATION AND REDIRECTION.
[2021-09-28 22:19] LABS: *BLOOD, URINE TRACE LYSED (NEGATIVE)
[2021-09-28 22:20] LABS: BACTERIA,URINE MODERATE /HPF (NONE SEEN); RBC,URINE 0-3 /HPF (0-3); SQUAMOUS EPITHELIAL CELL,UR MANY /HPF (NONE SEEN); WBC,URINE 20-50 /HPF (0-3)
--- NOTE | 2021-09-28 22:40 | NUR ---
ART FROM CRISIS TEAM AT BEDSIDE, TO EVALUATE PT.
[2021-09-28] MEDS ORDERED: LORAZEPAM 2 MG/1 ML VIAL IM ONE (23:15)
[2021-09-28] MEDS ORDERED: HALOPERIDOL LACTATE 5 MG/1 ML VIAL IM ONE (23:15)
[2021-09-28] MEDS ORDERED: diphenhydrAMINE 50 MG/1 ML VIAL IM ONE (23:15)
--- NOTE | 2021-09-28 23:20 | NUR ---
GAVE REPORT TO CLEMENT VELEZ.
[2021-09-28] MEDS ORDERED: SULFAMETH/TRIMETH 800/160 MG TABLET PO ONE (23:30)
[2021-09-28] MEDS ORDERED: diphenhydrAMINE 50 MG/1 ML VIAL ONE (23:31)
[2021-09-28] MEDS ORDERED: HALOPERIDOL LACTATE 5 MG/1 ML VIAL ONE (23:31)
[2021-09-28] MEDS ORDERED: LORAZEPAM 2 MG/1 ML VIAL ONE (23:32)
[2021-09-28 23:35] VITALS: BP 138/63
[2021-09-28] MEDS ORDERED: SULFAMETH/TRIMETH 800/160 MG TABLET ONE (23:42)
--- NOTE | 2021-09-28 23:46 | NUR ---
Pt. admitted to MHU , under care of / Yong. Dx: psychosis, 5150 hold GD. Belongs List completed
[2021-09-29] MEDS ORDERED: MAGNESIUM HYDROXIDE 30 ML LIQUID UDC PO PRN
[2021-09-29] MEDS ORDERED: MAG HYDROX/AL HYDROX/SIMETH 30 ML LIQUID UDC PO PRN
[2021-09-29] MEDS ORDERED: BLOOD SUGAR DIAGNOSTIC 1 EACH STRIP VI ONE
[2021-09-29] MEDS ORDERED: RISP1TAB97 PO (02:38)
[2021-09-29] MEDS ORDERED: FLUV50TA3 PO (02:38)
--- NOTE | 2021-09-29 02:51 | NUR ---
ADMISSION NOTE; Received from the Emergency Room at 2345, on a 72 hour hold for gravely disabled, a transfer from [facility]. According to the hold, she was hearing voices, and was verbally aggressive, and non compliant. She continued to exhibit this behavior in the ER, and was medicated with PO Zyprexa 10 mg, and Ativan 1 mg, at 2150, which was reported to be ineffective. She was then medicated with IM Haldol 3 mg/Ativan 2 mg/Benadryl 50 mg, at 2332, right before being transferred to this unit. Upon arrival, she was loud, talking to self, appeared to be distracted by internal stimuli. She was unable to provide any information, or to be redirected, wandering from room to room, with an unsteady gait. She was advised of her hold, but she was unable to comprehend. Patients rights booklet was placed at her bedside. She was assisted to bed, but immediately climbed out of bed. She was helped to the augusto chair, for her own safety, and placed with staff at nurses station. She continued to need frequent redirection, requiring staff to stay with her, for her own safety, continuing to talk to self, and answering questions inappropriately. She finally calmed down around 0210, was assisted to bed,and went right to sleep, with bed alarm on, for safety. As of now, she continues to sleep. No distress noted. Will continue to monitor closely.
[2021-09-29 07:30] VITALS: BP 146/69
[2021-09-29] MEDS: LORAZEPAM 1 MG TABLET PO PRN ×2 (09:14→14:44)
[2021-09-29] MEDS: NITROFURANTOIN/NITROFURAN MAC 100 MG CAPSULE PO SCH ×2 (09:18→21:06)
--- NOTE | 2021-09-29 10:16 | NUR ---
SW Initial Discharge Plan Pt was recently placed at [facility] [address], [place] [address] ([phone]); however, is requesting to find a different SNF placement. Pt has daughter, Ricarda ([phone]) and son Bharath ([phone]). BINH will continue to work with pt, family, and MD to ensure a safe and proper discharge plan.
[2021-09-29] MEDS: GABAPENTIN 100 MG CAPSULE PO SCH ×3 (10:27→21:08)
[2021-09-29] MEDS: METOPROLOL SUCCINATE XL 25 MG TAB.SR.24H PO SCH (10:29)
--- NOTE | 2021-09-29 10:52 | NUR ---
SW Family Contact SW spoke with patient's daughter Ricarda ([phone]) and discussed treatment and discharge plan. Ricarda stated pt does not have DPOA. Ricarda agreeable with discharge plan. SW will coordinate appropriate placement options.
[2021-09-29] MEDS: LEVOTHYROXINE SODIUM 50 MCG TABLET PO SCH (12:22)
--- NOTE | 2021-09-29 12:48 | NUR ---
Gps/Manager Of Medical- Remains anxious, needy, kept coming to the Nurses station for her simple needs, kept wanting to uses the phone constantly, forgetful , needing constant redirections.
--- NOTE | 2021-09-29 13:03 | NUR ---
Firearms Report: Digital Print Operator completed and submitted a DOJ firearms report for 5150 grave disability certifications. A copy of report has been placed in patient chart.
[2021-09-29] MEDS ORDERED: POTASSIUM CHLORIDE 20 MEQ TAB.PRT.SR PO ONE (16:45)
[2021-09-29 16:58] VITALS: BP 150/81
[2021-09-29] MEDS ORDERED: CLONAZEPAM 0.5 MG TABLET PO SCH (17:00)
--- NOTE | 2021-09-29 17:19 | NUR ---
Gps/Linotyper- Constantly needing redirections, limit setting , kept coming to the Nurses station for her simple needs. Asking for the same request. Wanting to get her cell phone in the safe, reviewed informed policy of the unit, unable to to understand, nor comprehend explanations . Dr Navarro was in to see patient, informed of her behavior . Staff having difficulty setting limiits patient does not comply .
[2021-09-29] MEDS: CLONAZEPAM 0.5 MG TABLET PO SCH ×2 (17:51→21:08)
[2021-09-29] MEDS ORDERED: Medication Not On Formulary EA (Lovastatin 1 TAB) PO SCH (18:00)
[2021-09-29] MEDS: HALOPERIDOL 1 MG TABLET PO SCH ×2 (18:40→21:07)
[2021-09-29 20:04] VITALS: BP 126/45
[2021-09-29] MEDS: ATORVASTATIN 10 MG TABLET PO SCH (21:06)
[2021-09-29] MEDS: FLUVOXAMINE MALEATE 50 MG TABLET PO SCH (21:06)
[2021-09-29] MEDS: TEMAZEPAM 7.5 MG CAPSULE PO PRN (23:15)
--- NOTE | 2021-09-30 04:57 | NUR ---
Received to care, anxious, but pleasant upon approach. Disorganized, but responds well, to redirection, which needs to be done frequently. Compliant with medications and staff direction. Interacts well with select male peers, watched TV with them, for a few hours, and went to sleep. PRN Restoril was given at 2315, and she went to sleep. She continues to sleep well. No distress noted. Will continue to monitor closely.
[2021-09-30] MEDS: LEVOTHYROXINE SODIUM 50 MCG TABLET PO SCH (06:58)
[2021-09-30 07:30] VITALS: BP 141/67
[2021-09-30] MEDS: FLUVOXAMINE MALEATE 25 MG TABLET PO SCH ×2 (09:32→16:45)
[2021-09-30] MEDS: GABAPENTIN 100 MG CAPSULE PO SCH ×3 (09:32→16:45)
[2021-09-30] MEDS: CLONAZEPAM 0.5 MG TABLET PO SCH ×3 (09:32→16:45)
[2021-09-30] MEDS: NITROFURANTOIN/NITROFURAN MAC 100 MG CAPSULE PO SCH ×2 (09:32→22:08)
[2021-09-30] MEDS: METOPROLOL SUCCINATE XL 25 MG TAB.SR.24H PO SCH (09:33)
[2021-09-30] MEDS: HALOPERIDOL 1 MG TABLET PO SCH ×3 (09:33→16:45)
--- NOTE | 2021-09-30 14:00 | NUR ---
Gps/Line Painting Machine Operator- Patient anxious, upset that the copy of her hold saying she's alcoholic , claimed she never drink alcohol in her life patient was reassured , explained her 14 day hold. Friend (neighbor) in and brought her clothes and shoes, , some unable to keep r/t to rated as contraband., she also brought in bills and checkbook needed to pay her bills ( will give it back to her neighbor), instructed to call saturday so [facility] can assist her with her issues .
[2021-09-30 16:00] VITALS: BP 150/63
--- NOTE | 2021-09-30 17:44 | NUR ---
Gps/Placement Secretary- Repeat UA obtained, sent to lab.
--- NOTE | 2021-09-30 18:20 | NUR ---
Gps/Header Dock- Noted patient had bowel incontinence, noted soft pasty, brown stool, per patient it was diarrhrea, smears in her pants noted. claimed she takes imipramin for IBS
[2021-09-30 20:00] VITALS: BP 101/62
[2021-09-30] MEDS: FLUVOXAMINE MALEATE 50 MG TABLET PO SCH (22:08)
[2021-09-30] MEDS: ATORVASTATIN 10 MG TABLET PO SCH (22:08)
[2021-10-01] MEDS: LEVOTHYROXINE SODIUM 50 MCG TABLET PO SCH (07:24)
[2021-10-01 07:47] VITALS: BP 160/70
[2021-10-01] MEDS: GABAPENTIN 100 MG CAPSULE PO SCH ×3 (08:03→16:12)
[2021-10-01] MEDS: FLUVOXAMINE MALEATE 25 MG TABLET PO SCH ×2 (08:03→16:12)
[2021-10-01] MEDS: NITROFURANTOIN/NITROFURAN MAC 100 MG CAPSULE PO SCH ×2 (08:03→20:27)
[2021-10-01] MEDS: HALOPERIDOL 1 MG TABLET PO SCH ×3 (08:03→16:12)
[2021-10-01] MEDS: METOPROLOL SUCCINATE XL 25 MG TAB.SR.24H PO SCH (08:08)
[2021-10-01] MEDS: CLONAZEPAM 0.5 MG TABLET PO SCH ×3 (08:10→16:12)
--- NOTE | 2021-10-01 13:08 | NUR ---
Gps/car spotter- Informed patient, her daughter was planning to vist her this pm, claimed ok to see her may bring her partner
[2021-10-01 15:55] VITALS: BP 111/69
--- NOTE | 2021-10-01 17:21 | NUR ---
Gps/Cephalometric Technician- Daughter Ricarda brought in keys (home keys) but she does not want patient to know she dropped off the house keys ., which she left in the front end alignment specialist (Security).[place] kept in pt's locker
--- NOTE | 2021-10-01 18:18 | NUR ---
Gps/Devulcanizer Operator- Patient kept complaining certain patient in the dinning was very nasty and rude to her, and requesting staff to do something . Instructed patient to stay away from him .Monitor patient for safety
[2021-10-01] MEDS: FLUVOXAMINE MALEATE 50 MG TABLET PO SCH (20:27)
[2021-10-01] MEDS: ATORVASTATIN 10 MG TABLET PO SCH (20:27)
--- NOTE | 2021-10-01 20:30 | NUR ---
RECEIVED PATIENT IN THE HALLWAY. SHE IS NOTED A/O X 2 TO 3. SHE IS ABLE TO VERBALIZED FEELINGS AND MAKE HER NEEDS KNOWN. SHE CONTINUE HYPERVERBAL, ATTENTION SEEKER, NEEDY, MULTIPLE QUESTIONS, MULTIPLE REQUESTS. PATIENT REQUIRED CONSTANT REDIRECTIONS AND REASSURANCE. SHE IS REASSURED FOR HER SAFETY. V/S STABLE. SHE IS GIVEN PO FLUIDS AND SNACKS. SAFETY AND FALL PRECAUTION IN PLACE. WILL CONTINUE TO MONITOR.
[2021-10-01 21:58] VITALS: BP 125/62
[2021-10-01] MEDS: TEMAZEPAM 7.5 MG CAPSULE PO PRN (23:12)
[2021-10-02] MEDS: LEVOTHYROXINE SODIUM 50 MCG TABLET PO SCH (06:31)
[2021-10-02 07:38] VITALS: BP 108/89
[2021-10-02] MEDS: METOPROLOL SUCCINATE XL 25 MG TAB.SR.24H PO SCH (09:00)
[2021-10-02] MEDS: GABAPENTIN 100 MG CAPSULE PO SCH ×3 (09:22→17:48)
[2021-10-02] MEDS: NITROFURANTOIN/NITROFURAN MAC 100 MG CAPSULE PO SCH ×2 (09:22→20:08)
[2021-10-02] MEDS: HALOPERIDOL 1 MG TABLET PO SCH ×3 (09:22→17:48)
[2021-10-02] MEDS: CLONAZEPAM 0.5 MG TABLET PO SCH ×3 (09:22→17:48)
[2021-10-02] MEDS: FLUVOXAMINE MALEATE 25 MG TABLET PO SCH ×2 (09:22→17:48)
[2021-10-02] MEDS: LORAZEPAM 1 MG TABLET PO PRN (11:10)
--- NOTE | 2021-10-02 14:51 | NUR ---
Patient is alert and oriented. Patient has episodes of being needy and attention-seeking from staff but is redirectable with limit setting behaviors. Patient is anxious, restless, and labile in mood. She states that she feels "very anxious" and she wants her prescribed benzodiazepine medication "doubled in dose". Patient educated about coping mechanisms for stress and anxiety. Patient is compliant with medication. Patient denies suicidal and homicidal ideation. Patient denies hallucinations but she appears internally preoccupied, patient noted with rolled up tissue papers in her ears and states "it's to tone down the noise". Patient is compliant with medications. Patient is able to ambulate independently, able to perform self care and ADl's independently. Patient encouraged to participate in unit groups and therapeutic milieu. Patient provided with education about impulse control and communicating needs appropriately to staff.
[2021-10-02 15:40] VITALS: BP 119/61
[2021-10-02] MEDS: ATORVASTATIN 10 MG TABLET PO SCH (20:08)
[2021-10-02] MEDS: FLUVOXAMINE MALEATE 50 MG TABLET PO SCH (20:08)
[2021-10-02 20:12] VITALS: BP 128/60
--- NOTE | 2021-10-02 20:15 | NUR ---
Received patient in the hallway. She is noted A/O x 2 to 3, but forgetful at times. She is noted hyperverbal. she is able to verbalized feelings. No aggressive/combative bx noted at this time. PO fluids and snacks are given to patient. She is reassured for her safety. safety and fall precaution are in place. will continue to monitor.
[2021-10-02] MEDS: TEMAZEPAM 7.5 MG CAPSULE PO PRN (21:23)
[2021-10-03] MEDS: LEVOTHYROXINE SODIUM 50 MCG TABLET PO SCH (06:49)
[2021-10-03 07:30] VITALS: BP 141/59
[2021-10-03] MEDS: METOPROLOL SUCCINATE XL 25 MG TAB.SR.24H PO SCH (09:06)
[2021-10-03] MEDS: FLUVOXAMINE MALEATE 25 MG TABLET PO SCH ×2 (09:06→17:26)
[2021-10-03] MEDS: CLONAZEPAM 0.5 MG TABLET PO SCH ×3 (09:06→17:26)
[2021-10-03] MEDS: NITROFURANTOIN/NITROFURAN MAC 100 MG CAPSULE PO SCH ×2 (09:06→21:14)
[2021-10-03] MEDS: GABAPENTIN 100 MG CAPSULE PO SCH ×3 (09:06→17:26)
[2021-10-03] MEDS: LORAZEPAM 1 MG TABLET PO PRN (09:06)
[2021-10-03] MEDS: HALOPERIDOL 1 MG TABLET PO SCH ×3 (09:07→17:26)
--- NOTE | 2021-10-03 10:17 | NUR ---
GPS: COURT HEARING DONE. PT HOLD ON GRAVELY DISABLE. PT SPOKE WITH PT RIGHT ADVOCATE.
--- NOTE | 2021-10-03 14:36 | NUR ---
GPS: PT HAS BEEN NEEDY AND PACING THE HALLWAY THE WHOLE DAY. PT IS ATTENTION SEEKER AND HYPERVERBAL. DENIES PAIN OR DISCOMFORT. COOPERATIVE WITH CARE AND MEDICATION COMPLIANT.
[2021-10-03 15:46] VITALS: BP 141/71
--- NOTE | 2021-10-03 16:35 | NUR ---
GPS: PER PT, SHE SPOKE WITH NEUROLOGIST AND WILL HAVE TO REVIEW OF THE NEXT PLAN OF CARE. PT VERY NEEDY AND ATTENTION SEEKER. PT GETS ANXIOUS AND AGITATED WITH OTHER PT THAT STEPS INTO HER WAY. REDIRECTED PT.
[2021-10-03] MEDS: ATORVASTATIN 10 MG TABLET PO SCH (21:14)
[2021-10-03] MEDS: TEMAZEPAM 7.5 MG CAPSULE PO PRN (21:15)
[2021-10-03 21:29] VITALS: BP 132/54
[2021-10-04] MEDS: LORAZEPAM 1 MG TABLET PO PRN (01:21)
--- NOTE | 2021-10-04 04:50 | NUR ---
Received to care, anxious, but pleasant upon approach. Disorganized, but responds well, to redirection, which needs to be done frequently. Compliant with medications and staff direction. Interacts well with select male peers, watched TV with them, for a few hours, and went to sleep. PRN Restoril was given at 2114, and she went to sleep. She continues to sleep well, on and off. No distress noted. Will continue to monitor closely.
--- NOTE | 2021-10-04 06:00 | NUR ---
Slept 6.45 hours. Continues to sleep. No distress noted.
[2021-10-04] MEDS: LEVOTHYROXINE SODIUM 50 MCG TABLET PO SCH (06:49)
[2021-10-04 07:30] VITALS: BP 136/72
[2021-10-04] MEDS: NITROFURANTOIN/NITROFURAN MAC 100 MG CAPSULE PO SCH ×2 (08:38→20:52)
[2021-10-04] MEDS: FLUVOXAMINE MALEATE 50 MG TABLET PO SCH ×3 (08:38→17:54)
[2021-10-04] MEDS: CLONAZEPAM 0.5 MG TABLET PO SCH ×3 (08:38→17:54)
[2021-10-04] MEDS: HALOPERIDOL 1 MG TABLET PO SCH ×3 (08:39→17:54)
[2021-10-04] MEDS: ACETAMINOPHEN 325 MG TABLET PO PRN (08:39)
[2021-10-04] MEDS: GABAPENTIN 100 MG CAPSULE PO SCH ×3 (08:39→17:54)
[2021-10-04] MEDS: METOPROLOL SUCCINATE XL 25 MG TAB.SR.24H PO SCH (08:40)
[2021-10-04 16:32] VITALS: BP 164/62
--- NOTE | 2021-10-04 18:57 | NUR ---
Dr. Foy saw patient today for a neuro consult. Verbal orders given for gabapentin 300 mg PO HS for neuropathic pain and for sleep. Dr. Navarro, psychiatrist notified. Orders noted and carried out.
[2021-10-04 20:18] VITALS: BP 126/61
[2021-10-04] MEDS: ATORVASTATIN 10 MG TABLET PO SCH (20:52)
[2021-10-04] MEDS: GABAPENTIN 300 MG CAPSULE PO SCH (20:52)
[2021-10-04] MEDS ORDERED: HALOPERIDOL 1 MG TABLET PO SCH (21:00)
--- NOTE | 2021-10-05 03:55 | NUR ---
Pharmacy Note: Patient's Haldol dose increased, range requires updating by psychiatrist. Dr. garcia, order for 10/04 HS dose is to hold medication until consent is updated Monique in pharmacy informed.
[2021-10-05] MEDS: LEVOTHYROXINE SODIUM 50 MCG TABLET PO SCH (06:25)
[2021-10-05 07:30] VITALS: BP 159/79
[2021-10-05] MEDS: GABAPENTIN 100 MG CAPSULE PO SCH ×3 (08:53→17:19)
[2021-10-05] MEDS: CLONAZEPAM 0.5 MG TABLET PO SCH ×3 (08:53→17:16)
[2021-10-05] MEDS: NITROFURANTOIN/NITROFURAN MAC 100 MG CAPSULE PO SCH ×2 (08:53→20:30)
[2021-10-05] MEDS: FLUVOXAMINE MALEATE 50 MG TABLET PO SCH ×3 (08:53→17:16)
[2021-10-05] MEDS ORDERED: HALOPERIDOL 0.5 MG TABLET PO SCH (09:00)
[2021-10-05] MEDS: METOPROLOL SUCCINATE XL 25 MG TAB.SR.24H PO SCH (09:24)
[2021-10-05] MEDS: HALOPERIDOL 5 MG TABLET PO SCH ×3 (09:56→20:31)
--- NOTE | 2021-10-05 14:38 | NUR ---
Gps/Dredge Pumper- Tranfered to room #140-B .Noted patient hoarding some stuff in her closet, kept askin for more clothes , discouraged from keeping lots of thing not necessary in her room.
--- NOTE | 2021-10-05 15:23 | NUR ---
Gps/Arch Support Maker- Patient yelling at the staff " I dont want to be treated like a a [place]"!! per patient, pointing finger at the staff., patient staff never call anybody names , staff trying to provide what is necessary help patient with their needs .Needy, patient kept closing her door , discouraged from doing so , claimed the unit is very noisy and she needed to close the door. Explained to patient why she cant close the door. Patient wants to file a complaints and stated again " do not treat me like a NIGER"!! Patient was well informed prior moving to another room , but she noted blinds are missing some strands . Patient noted > angry, irritable loud tone of voice when talking to the staff. Patient requesting to be moved to another room when available per patient , room w/ no missing blinds. requesting to talk to Britney
[2021-10-05 16:00] VITALS: BP 117/45
[2021-10-05 20:00] VITALS: BP 141/73
[2021-10-05] MEDS: GABAPENTIN 300 MG CAPSULE PO SCH (20:30)
[2021-10-05] MEDS: ATORVASTATIN 10 MG TABLET PO SCH (20:30)
[2021-10-06] MEDS: LEVOTHYROXINE SODIUM 50 MCG TABLET PO SCH (06:21)
[2021-10-06 07:30] VITALS: BP 151/68
[2021-10-06] MEDS: HALOPERIDOL 5 MG TABLET PO SCH ×3 (08:36→20:24)
[2021-10-06] MEDS: CLONAZEPAM 0.5 MG TABLET PO SCH ×3 (08:36→16:30)
[2021-10-06] MEDS: NITROFURANTOIN/NITROFURAN MAC 100 MG CAPSULE PO SCH (08:36)
[2021-10-06] MEDS: GABAPENTIN 100 MG CAPSULE PO SCH ×3 (08:36→16:30)
[2021-10-06] MEDS: FLUVOXAMINE MALEATE 50 MG TABLET PO SCH ×3 (08:36→16:30)
[2021-10-06] MEDS: METOPROLOL SUCCINATE XL 25 MG TAB.SR.24H PO SCH (08:37)
--- NOTE | 2021-10-06 11:01 | NUR ---
PT RECEIVED AMBULATING UNIT HALLWAY. VERY NEEDY AND INTRUSIVE. FREQUENTLY AT NURSES STATION WITH MULTIPLE REQUESTS. DIFFICULT TO SATISFY NEEDS.EXCESSIVELY FORGETFUL AND ANXIOUS AT TIMES. COMPLIANT WITH MEDICATIONS AND CARE. NO AGGRESSIVE OR COMBATIVE BEHAVIOR NOTED.
--- NOTE | 2021-10-06 16:30 | NUR ---
pt refused scheduled 1700 haldol because she states the medication makes her "feel very depressed"
[2021-10-06 16:49] VITALS: BP 118/50
[2021-10-06] MEDS: ATORVASTATIN 10 MG TABLET PO SCH (20:21)
[2021-10-06] MEDS: GABAPENTIN 300 MG CAPSULE PO SCH (20:21)
[2021-10-06 20:35] VITALS: BP 131/59
[2021-10-06] MEDS: TEMAZEPAM 7.5 MG CAPSULE PO PRN (22:15)
[2021-10-07] MEDS: LEVOTHYROXINE SODIUM 50 MCG TABLET PO SCH (06:17)
[2021-10-07 08:14] VITALS: BP 141/75
[2021-10-07] MEDS: CLONAZEPAM 0.5 MG TABLET PO SCH ×4 (08:22→20:19)
[2021-10-07] MEDS: GABAPENTIN 100 MG CAPSULE PO SCH ×3 (08:22→16:22)
[2021-10-07] MEDS: FLUVOXAMINE MALEATE 50 MG TABLET PO SCH ×3 (08:22→16:22)
[2021-10-07] MEDS: HALOPERIDOL 5 MG TABLET PO SCH ×4 (08:28→21:00)
[2021-10-07] MEDS: METOPROLOL SUCCINATE XL 25 MG TAB.SR.24H PO SCH (08:34)
--- NOTE | 2021-10-07 12:38 | NUR ---
Pt. is givern Milk of Magnesia for constipation, will be monitored for effectiveness.
--- NOTE | 2021-10-07 12:45 | NUR ---
Pt. is given Klonopin 0.25 mg around 09:00 am witnessed by Charge nurse Brenda, half of the pill was wasted, but not recorded by pixis, since by mistake I got the wrong option of given the whole pill.
--- NOTE | 2021-10-07 14:27 | NUR ---
Pt. is received awake in her room. A/OX 2 to person, place. Pt. affect is talkative, friendly, suspicious. Pt. is compliant with medications, except Haldol. Ambulates independently. Self care. Active listening provided. Fall and safety precautions implemented.
[2021-10-07 15:47] VITALS: BP 120/53
[2021-10-07] MEDS: ACETAMINOPHEN 325 MG TABLET PO PRN (17:10)
--- NOTE | 2021-10-07 17:11 | NUR ---
Tylenol 650 mg is given at 17:10 for back pain, will be monitored for effectiveness.
--- NOTE | 2021-10-07 18:23 | NUR ---
Patient urine was collected and sent to lab at 18:20 as ordered.
[2021-10-07 20:00] VITALS: BP 142/53
[2021-10-07] MEDS: GABAPENTIN 300 MG CAPSULE PO SCH (20:18)
[2021-10-07] MEDS: ATORVASTATIN 10 MG TABLET PO SCH (20:18)
[2021-10-07] MEDS: TEMAZEPAM 7.5 MG CAPSULE PO PRN (21:42)
[2021-10-07 23:25] LABS: *BILIRUBIN,URIN NEGATIVE (NEGATIVE); *BLOOD, URINE NEGATIVE (NEGATIVE); *CLARITY,URINE CLEAR (CLEAR); *COLOR,URINE DARK YELLOW (YELLOW); *KETONES,URINE TRACE (NEGATIVE); *UROBILINOGEN,URINE 0.2 E.U./dl (NORMAL); LEUKOCYTE ESTERASE ,URINE NEGATIVE (NEGATIVE); NITRITE, URINE NEGATIVE (NEGATIVE); UGLUCOSE NEGATIVE (NEGATIVE)
[2021-10-08] MEDS: LEVOTHYROXINE SODIUM 50 MCG TABLET PO SCH (06:24)
--- NOTE | 2021-10-08 07:03 | NUR ---
Pt awake, comfortable. No complaints of pain, no s/s of distress. Pt manifested disorganizations of thought and flight of ideas. Needy, hyperverbal, forgetful manipulative, complaints about noise and activities in the unit not letting her sleep. Pt slept a total of 6hrs during the shift. Compliant with meds but refused Haldol. Safety precautions in place. Needs attended to accordingly.
[2021-10-08 07:40] VITALS: BP 154/65
--- NOTE | 2021-10-08 08:00 | NUR ---
Rec d patient asleep arousable and compliant a [facility] ag[facility]iveness [facility] to [facility] nurse know and later we would see if that could haqppen. Oral intake fair, hydration fair and still refusing HALDOL SHE STATES it makes her feel suicidal. In and out of room to desk no other peer inter action noted
[2021-10-08] MEDS: FLUVOXAMINE MALEATE 50 MG TABLET PO SCH ×3 (09:27→16:45)
[2021-10-08] MEDS: GABAPENTIN 100 MG CAPSULE PO SCH ×3 (09:28→16:45)
[2021-10-08] MEDS: CLONAZEPAM 0.5 MG TABLET PO SCH ×4 (09:28→20:38)
[2021-10-08] MEDS: HALOPERIDOL 5 MG TABLET PO SCH ×2 (09:31→16:46)
[2021-10-08] MEDS: METOPROLOL SUCCINATE XL 25 MG TAB.SR.24H PO SCH (09:53)
[2021-10-08 16:01] VITALS: BP 140/56
--- NOTE | 2021-10-08 18:04 | NUR ---
Patient without outbursts or anger issue except wanting to change room. Waiting for u/a results and new order for new swpecimen . unable too get new specimen will pass on to next shift. Continue to monitor and aqssist as needed. Affect flat with a labile mood no peer inter action . compliant with milieu today otherwise.
[2021-10-08 20:13] VITALS: BP 128/62
[2021-10-08] MEDS: GABAPENTIN 300 MG CAPSULE PO SCH (20:37)
[2021-10-08] MEDS: ATORVASTATIN 10 MG TABLET PO SCH (20:37)
[2021-10-08] MEDS: TEMAZEPAM 7.5 MG CAPSULE PO PRN (21:07)
[2021-10-08] MEDS: LORAZEPAM 1 MG TABLET PO PRN (22:52)
[2021-10-09] MEDS: LEVOTHYROXINE SODIUM 50 MCG TABLET PO SCH (06:10)
--- NOTE | 2021-10-09 08:00 | NUR ---
received patient agitated and c/ o changing room thw need to, re dirtected her and patient received aqtivan 1mg with good effect , Patient still dis shelved and unkempt. continue to monitor for safety
[2021-10-09 08:01] VITALS: BP 126/65
--- NOTE | 2021-10-09 08:10 | NUR ---
patient up in hallway anxious needy disshelved asking for room change re directed to room. pt states she didnt sleep all night and wanted medication for anxiety..
[2021-10-09] MEDS: FLUVOXAMINE MALEATE 50 MG TABLET PO SCH ×3 (09:43→20:01)
[2021-10-09] MEDS: GABAPENTIN 100 MG CAPSULE PO SCH ×3 (09:43→17:23)
[2021-10-09] MEDS: CLONAZEPAM 0.5 MG TABLET PO SCH ×4 (09:43→20:01)
[2021-10-09] MEDS: METOPROLOL SUCCINATE XL 25 MG TAB.SR.24H PO SCH (09:44)
[2021-10-09] MEDS: LORAZEPAM 1 MG TABLET PO PRN (09:45)
--- NOTE | 2021-10-09 09:45 | NUR ---
patient recd Ativan 1mg with good effect aafter 20 minutes and was sleeping until lunch.
--- NOTE | 2021-10-09 12:33 | NUR ---
patient awake for lunch a little clearer in mentation encouraged too eat lunch . No c/o pain or [id number].Encourage patient to participate in groups and peer interaction.
--- NOTE | 2021-10-09 12:58 | NUR ---
SW Facility Referral SW called and spoke with Anitha, origination specialist ([phone]) to request assistance with assisted living placement for pt. Anitha will meet with pt tomorrow to discuss placement options.
[2021-10-09 16:00] VITALS: BP 101/47
--- NOTE | 2021-10-09 18:29 | NUR ---
remains intrusive and needy constantly at the desk very needy .UA GIVEN FOR REPEAT c?s AND TAKEN TO lab
[2021-10-09 20:01] VITALS: BP 116/56
[2021-10-09] MEDS: ATORVASTATIN 10 MG TABLET PO SCH (20:01)
[2021-10-09] MEDS: GABAPENTIN 300 MG CAPSULE PO SCH (20:01)
[2021-10-09] MEDS: TEMAZEPAM 7.5 MG CAPSULE PO PRN (21:17)
[2021-10-10] MEDS: LORAZEPAM 1 MG TABLET PO PRN (04:13)
[2021-10-10] MEDS: LEVOTHYROXINE SODIUM 50 MCG TABLET PO SCH (07:18)
[2021-10-10 08:00] VITALS: BP 119/60
[2021-10-10] MEDS: FLUVOXAMINE MALEATE 50 MG TABLET PO SCH ×3 (08:48→20:15)
[2021-10-10] MEDS: GABAPENTIN 100 MG CAPSULE PO SCH ×3 (08:48→17:12)
[2021-10-10] MEDS: CLONAZEPAM 0.5 MG TABLET PO SCH ×4 (08:50→20:16)
[2021-10-10] MEDS: METOPROLOL SUCCINATE XL 25 MG TAB.SR.24H PO SCH (08:57)
[2021-10-10 16:07] VITALS: BP 115/47
--- NOTE | 2021-10-10 16:21 | NUR ---
Pt. A/O X 3 to person, place, environment. Pt. affect is demanding, needy, hyperverbal. Pt. Ambulates without assistance. Metoprolol 25 mg was held at 09:00 bc pt. pulse was 53. Pt. is encourage to verbalize feelings and emotions. Fall and safety precautions implemented.
[2021-10-10] MEDS: ATORVASTATIN 10 MG TABLET PO SCH (20:15)
[2021-10-10] MEDS: GABAPENTIN 300 MG CAPSULE PO SCH (20:16)
--- NOTE | 2021-10-10 20:30 | NUR ---
RECEIVED PATIENT IN HER ROOM, SITTING IN HER BED. SHE IS NOTED A/O X 2 TO 3. SHE IS ABLE TO VERBALIZED HER FEELINGS AND ABLE TO WALK WITH STEADY GAIT. SHE IS NOTED HYPERVERBAL, DEMANDING AT TIME BUT SHE IS REDIRECTABLE. PO FLUIDS AND SNACKS WERE GIVEN. V/S STABLE. SHE IS REASSURED FOR HER SAFETY. SAFETY AND FALL PRECAUTION IN PLACE. WILL CONTINUE TO MONITOR.
[2021-10-11] MEDS: TEMAZEPAM 7.5 MG CAPSULE PO PRN ×2 (01:16→21:21)
[2021-10-11] MEDS: LEVOTHYROXINE SODIUM 50 MCG TABLET PO SCH (06:14)
[2021-10-11 07:11] LABS: *BILIRUBIN,URIN NEGATIVE (NEGATIVE); *CLARITY,URINE CLEAR (CLEAR); *COLOR,URINE YELLOW (YELLOW); *KETONES,URINE NEGATIVE (NEGATIVE); *UROBILINOGEN,URINE 0.2 E.U./dl (NORMAL); LEUKOCYTE ESTERASE ,URINE TRACE (NEGATIVE); NITRITE, URINE NEGATIVE (NEGATIVE); UGLUCOSE NEGATIVE (NEGATIVE)
[2021-10-11 07:13] LABS: *BLOOD, URINE TRACE (NEGATIVE)
[2021-10-11] MEDS: CLONAZEPAM 0.5 MG TABLET PO SCH ×4 (09:32→20:05)
[2021-10-11] MEDS: FLUVOXAMINE MALEATE 50 MG TABLET PO SCH ×3 (09:32→20:06)
[2021-10-11] MEDS: GABAPENTIN 100 MG CAPSULE PO SCH ×3 (09:32→16:55)
[2021-10-11 10:17] VITALS: BP 133/60
[2021-10-11 13:33] LABS: BACTERIA,URINE MODERATE /HPF (NONE SEEN); RBC,URINE 0-3 /HPF (0-3); SQUAMOUS EPITHELIAL CELL,UR FEW /HPF (NONE SEEN); WBC,URINE 0-3 /HPF (0-3)
[2021-10-11 16:00] VITALS: BP 148/73
--- NOTE | 2021-10-11 16:41 | NUR ---
SW Discharge Planning [facility] called and spoke with Anitha ([phone]) and was informed pt has been accepted at [facility], [facility]. located at [address] [place] [address] ([phone]). Anitha will pick pt up at 11:30am and transport pt to [facility]. personal lines account executive at [facility] is
--- NOTE | 2021-10-11 16:43 | NUR ---
SW Facility Contact [facility] called [facility] located at [id number] [place] [phone] ([phone]) and left voice mail for Angelika, to confirm discharge for tomorrow 10/12/21. Requested call back.
--- NOTE | 2021-10-11 16:55 | NUR ---
SW Family Contact SW left a voicemail for patient's daughter Ricarda Ramon ([phone]) informing of discharge plan. Requested a call back.
--- NOTE | 2021-10-11 17:12 | NUR ---
Patient is alert and oriented. Patient is intrusive, needy, easily irritable, has poor boundaries with staff and others. Patient is constantly asking for various things, and when she is redirected she continuous with tangential, circumstantial thought and requires multiple efforts at redirection. Patient denies suicidal and homicidal ideation. Patient is compliant with medications, no adverse reactions noted. Patient is able to ambulate independently. Able to perform self care and ADL's independently. Patient is encouraged to participate in unit groups and therapeutic milieu, educated about impulse control and communicating needs to staff appropriately.
--- NOTE | 2021-10-11 17:14 | NUR ---
SW Family Contact SW spoke with Ricarda Ramon ([phone]) and discussed discharge plan. Ricarda was provided contact info for Anitha card services specialist ([phone]).
--- NOTE | 2021-10-11 17:36 | NUR ---
Patient has been hoarding clothes, supplies, papers, and contraband items such as paperclips, pens, plastic bags, and markers in her assigned locker. Patient provided with education about unit rules and safety and educated about why she cannot have contraband and why she cannot maritza items. Patient became angry, agitated, and started screaming at staff. Patient provided with redirection and reality orientation multiple times. patient educated about impulse control and communicating her needs appropriatley.
[2021-10-11] MEDS: ATORVASTATIN 10 MG TABLET PO SCH (20:06)
[2021-10-11] MEDS: GABAPENTIN 300 MG CAPSULE PO SCH (20:06)
[2021-10-11 20:19] VITALS: BP 131/58
[2021-10-12] MEDS: LORAZEPAM 1 MG TABLET PO PRN (04:23)
[2021-10-12] MEDS: LEVOTHYROXINE SODIUM 50 MCG TABLET PO SCH (06:59)
[2021-10-12 07:30] VITALS: BP 150/77
[2021-10-12] MEDS: CLONAZEPAM 0.5 MG TABLET PO SCH (09:17)
[2021-10-12] MEDS: FLUVOXAMINE MALEATE 50 MG TABLET PO SCH (09:17)
[2021-10-12] MEDS: GABAPENTIN 100 MG CAPSULE PO SCH (09:17)
--- NOTE | 2021-10-12 10:56 | NUR ---
Discharge Note Patient will be discharged to [facility], [facility] [address] [place] [address] ([phone]). Anitha ([phone]), patient appointment coordinator, will pick pt up at 11:30AM. Patient is aware and agreeable with discharge plans. Patient is alert and oriented x3, is unable to plan for self-care at this time; however, is willing to accept care at. Patient denies any suicidal or homicidal ideation. Patient is referred to [facility] [address] [place] [address] ([phone]). Patient is also referred to [facility] [address] [facility] [address], [address] [place] [address] ([phone]). Patient presents with calm mood and congruent affect.
--- NOTE | 2021-10-12 12:05 | NUR ---
Gps/Leadership Development Instructor- All belongings given back to patient . Discharged to [facility] care via private car. Picked up by Anitha from the facility. Patient discharged in good spirit no complaints noted.
--- NOTE | 2021-10-13 13:58 | NUR ---
[facility] Care Coordination Per request, [facility] faxed home health order to Laura with [facility] (phone: [phone]; fax: [phone]).
== END 2021-10-12 12:00 | DRG 885 ==
LOC: ER 20:23 → GPS 23:39
PROVIDERS: ADMIT Psychiatry & Neurology Psychiatry; ATTEND Nurse Practitioner Family
DX: F29 Unspecified psychosis not due to a substance or known physiological condition (principal); R45.851 Suicidal ideations; F32.A Depression, unspecified; E87.6 Hypokalemia; F41.9 Anxiety disorder, unspecified; E03.9 Hypothyroidism, unspecified; E78.5 Hyperlipidemia, unspecified; I10 Essential (primary) hypertension; M79.7 Fibromyalgia; Z91.19 Patient's noncompliance with other medical treatment and regimen
CPT/HCPCS: 36415; 84443; 85025; 87086; 97161; A4663; J1200; J1630; J2060